=== PATIENT | male | born 1990 | race Caucasian/White ===

== ENCOUNTER 2017-07-14 16:46 | Emergency (ER) | payer OTHER ==
[~2017-07-14] VITALS: Ht 182.9 cm; Wt 93.6 kg
[2017-07-14 17:44] VITALS: BP 136/87
--- NOTE | 2017-07-14 19:35 | NUR ---
PT. AMBULATES TO ED BED 5
--- NOTE | 2017-07-14 19:45 | NUR ---
27Y/M PT. PRESENTS TO ED WITH C/O BILATERL PLANTAR, PALM PAIN 07/15 X 2 DAYS WITH N/V; SON DX WITH FOOT AND MOUTH DZ LAST FRIDAY. AAO X4, AMBULATORY WITH STEADY GAIT. NO SKIN BREAKDOWN. VSS, C/O PAIN 11/15. ER MD MADE AWARE OF PT. STATUS.
--- NOTE | 2017-07-14 19:45 | NUR ---
Patient being evaluated by DR. CASILLAS at bedside.
--- NOTE | 2017-07-14 19:55 | NUR ---
Patient discharged with v/s stable. Written and verbal after care instructions given and explained. Patient alert, oriented and verbalized understanding of instructions. Ambulatory with to car. All questions addressed prior to discharge. ID band removed. Patient advised to follow up with PMD. Rx of NORCO 5/325 MG given. Patient educated on indication of medication including possible reaction and side effects. Opportunity to ask questions provided and answered.
[2017-07-14 20:41] VITALS: BP 125/78
== END 2017-07-14 20:55 | disposition home or self-care (01) ==
LOC: MED 16:46
DX: B08.4 Enteroviral vesicular stomatitis with exanthem (principal); R03.0 Elevated blood-pressure reading, without diagnosis of hypertension
CPT/HCPCS: 99283